=== PATIENT | female | born 1985 | race Caucasian/White ===

== ENCOUNTER 2020-09-19 11:56 | Emergency (ER) | payer MEDICAID, OTHER ==
[~2020-09-19] VITALS: Ht 172.7 cm; Wt 95.3 kg
[2020-09-19 13:31] LABS: Basophils # (auto) 0.1 10 ^3/uL (0-0.2); Basophils % (auto) 0.8 % (0.0-2.0); Eosinophils # (auto) 0.1 10 ^3/uL (0-0.8); Eosinophils % (auto) 1.3 % (0.0-7.0); Hematocrit 41.7 % (36.0-46.0); Hemoglobin 13.8 g/dL (12.2-16.2); Lymphocytes # (auto) 1.8 10 ^3/uL (0.4-5.4); Lymphocytes % (auto) 20.3 % (10.0-50.0); Mean Corpuscular Hemoglobin 28.2 pg (28.0-32.0); Mean Corpuscular Hgb Conc. 33.2 g/dL (32.0-36.0); Mean Corpuscular Volume 84.9 fL (80.0-100.0); Monocytes # (auto) 0.5 10 ^3/uL (0-1.3); Monocytes % (auto) 5.4 % (0.0-12.0); Neutrophils # (auto) 6.5 10 ^3/uL (1.6-8.6); Neutrophils % (auto) 72.2 % (37.0-80.0); Platelet Count (auto) 275 10^3/uL (140-450); Red Blood Cells 4.91 10^6/uL (4.0-5.20); Red Cell Distribution Width 14.6 % (11.8-14.3)
[2020-09-19 13:50] LABS: INR 0.97 (0.9-1.15); Partial Thromboplastin Time 24.7 sec (23.0-31.2)
[2020-09-19 14:03] LABS: Beta HCG, Quantitative < 1 mlU/mL (1-3); Thyroid Stimulating Hormone 2.84 uIU/mL (0.358-3.74)
[2020-09-19 14:12] LABS: Urine Bacteria NONE SEEN /hpf (None Seen); Urine Blood Negative /uL (Negative); Urine Mucus FEW (None Seen); Urine Specific Gravity 1.009 (1.001-1.035); Urine WBC 1 /hpf (0 - 5)
[2020-09-19 14:14] LABS: Anion Gap 9 (5-15); BUN/Creatinine Ratio 9.8; Blood Urea Nitrogen 6 mg/dL (7-18); Carbon Dioxide 24 mmol/L (21-32); Chloride 106 mmol/L (98-107); GFR African American 143 mL/min; GFR Non-African American 118 mL/min; Glucose 85 mg/dL (74-106); Potassium 4.2 mmol/L (3.5-5.1); Sodium 139 mmol/L (136-145)
[2020-09-19 14:15] LABS: Alanine Aminotransferase 28 U/L (13-56); Albumin 3.5 g/dL (3.4-5.0); Alkaline Phosphatase 27 U/L (45-117); Aspartate Aminotransferase 21 U/L (15-37); Total Protein 7.8 g/dL (6.4-8.2)
[2020-09-19 14:16] LABS: Bilirubin, Total 0.2 mg/dL (0.2-1.0)
[2020-09-19] MEDS ORDERED: SODIUM CHLORIDE 0.9% 1,000 ML IV ONE (15:30)
[2020-09-19] MEDS ORDERED: IOHEXOL 350 MG/ML 100ML IJ ONE (16:50)
[2020-09-19 18:11] VITALS: BP 122/59
== END 2020-09-19 18:32 | disposition home or self-care (01) ==
LOC: ER 11:56
DX: R00.2 Palpitations (principal); R53.1 Weakness; L03.311 Cellulitis of abdominal wall
CPT/HCPCS: 36415; 71045; 71275; 80053; 81001; 83735; 84443; 84484; 84702; 85025; 85379; 85610; 85730; 93005; 96360; 99285; J7030; Q9967

== ENCOUNTER 2020-09-24 08:26 | Emergency (ER) | payer MEDICAID ==
[~2020-09-24] VITALS: Ht 172.7 cm; Wt 95.3 kg
[2020-09-24 09:12] LABS: Basophils # (auto) 0 10 ^3/uL (0-0.2); Basophils % (auto) 0.6 % (0.0-2.0); Eosinophils # (auto) 0.1 10 ^3/uL (0-0.8); Hematocrit 41.5 % (36.0-46.0); Lymphocytes # (auto) 1.8 10 ^3/uL (0.4-5.4); Lymphocytes % (auto) 26.5 % (10.0-50.0); Mean Corpuscular Hemoglobin 28.6 pg (28.0-32.0); Mean Corpuscular Hgb Conc. 33.7 g/dL (32.0-36.0); Monocytes # (auto) 0.5 10 ^3/uL (0-1.3); Monocytes % (auto) 7.2 % (0.0-12.0); Neutrophils # (auto) 4.3 10 ^3/uL (1.6-8.6); Neutrophils % (auto) 63.7 % (37.0-80.0); Platelet Count (auto) 229 10^3/uL (140-450); Red Blood Cells 4.88 10^6/uL (4.0-5.20); Red Cell Distribution Width 14.6 % (11.8-14.3); White Blood Cell 6.8 10^3/uL (4.4-10.8)
[2020-09-24 09:20] LABS: Albumin 3.4 g/dL (3.4-5.0); Anion Gap 7 (5-15); Blood Urea Nitrogen 7 mg/dL (7-18); Calcium 8.7 mg/dL (8.5-10.1); Carbon Dioxide 24 mmol/L (21-32); Chloride 108 mmol/L (98-107); Glucose 104 mg/dL (74-106); Potassium 3.6 mmol/L (3.5-5.1); Sodium 139 mmol/L (136-145)
[2020-09-24 09:26] LABS: Alanine Aminotransferase 26 U/L (13-56); Alkaline Phosphatase 27 U/L (45-117); Aspartate Aminotransferase 10 U/L (15-37); BUN/Creatinine Ratio 10.4; Bilirubin, Total 0.5 mg/dL (0.2-1.0); GFR African American 128 mL/min; GFR Non-African American 106 mL/min; Total Protein 7.5 g/dL (6.4-8.2)
[2020-09-24 10:00] LABS: Alcohol, Urine < 3.0 mg/dL (0-10); Amphetamine Screen, Urine NEGATIVE (NEGATIVE); Barbiturate Scree,Urine NEGATIVE (NEGATIVE); Benzodiazephine Screen, Urine NEGATIVE (NEGATIVE); Cannabinoid Screen, Urine NEGATIVE (NEGATIVE); Cocaine Screen, Urine NEGATIVE (NEGATIVE); Opiate Scree,Urine NEGATIVE (NEGATIVE); Phencyclidine Screen, Urine NEGATIVE (NEGATIVE)
[2020-09-24 11:02] VITALS: BP 155/86
== END 2020-09-24 11:46 | disposition home or self-care (01) ==
LOC: ER 08:26
DX: R00.2 Palpitations (principal); E03.9 Hypothyroidism, unspecified
CPT/HCPCS: 36415; 80053; 80307; 84443; 84484; 85025; 93005